=== PATIENT | female | born 1965 | race Caucasian/White ===

== ENCOUNTER → 2016-12-13 | Outpatient (REF) | LOC: ZLAB.WCH 13:37 | DX: Z01.89 Encounter for other specified special examinations (principal) ==

== ENCOUNTER → 2017-09-09 | Outpatient (CLI) | payer BC | LOC: COL.RAD 09:37 | DX: K44.9 Diaphragmatic hernia without obstruction or gangrene (principal) ==

== ENCOUNTER → 2017-09-19 | Outpatient (REF) | LOC: ZLAB.WCH 18:07 | DX: Z01.89 Encounter for other specified special examinations (principal) ==

== ENCOUNTER 2017-10-01 07:01 | Day surgery (SDC) | payer BC ==
[~2017-10-01] VITALS: Ht 170.2 cm; Wt 76.9 kg
[2017-10-01] VITALS (11 sets, daily range): BP systolic 109–149; BP diastolic 67–85; PULSE 75–91; TEMP 98–98.2
[2017-10-01] MEDS ORDERED: SINGULAIR 110 MG/TAB PO (07:30)
[2017-10-01] MEDS ORDERED: TUSS PO (07:30)
[2017-10-01] MEDS ORDERED: EFFEXOR XR75 MG/CAP (07:31)
[2017-10-01] MEDS ORDERED: VITAMIN C500 MG PO (07:31)
[2017-10-01] MEDS ORDERED: PRIL40 PO (07:32)
[2017-10-01] MEDS ORDERED: NATURAL POTASS595 MG PO (07:32)
[2017-10-01] MEDS ORDERED: SYNTHROID0.05 MG/TA PO (07:33)
[2017-10-01] MEDS ORDERED: ESTRACE0.5 MG PO (07:34)
[2017-10-01] MEDS ORDERED: IRON TABLETS325 MG PO (07:35)
[2017-10-01] MEDS ORDERED: RT ADVAIR 228 DISKUS IH (07:36)
[2017-10-02 01:07] VITALS: BP 121/76; PULSE 87; TEMP 98.2
[2017-10-02 05:11] VITALS: BP 136/80; PULSE 83; TEMP 98.5
[2017-10-02 09:26] VITALS: BP 117/56; PULSE 93; TEMP 97.7
[2017-10-02 12:06] VITALS: BP 136/78; PULSE 78; TEMP 97.4
== END 2017-10-02 16:51 | disposition home or self-care (01) ==
LOC: SDCO 07:01 → SURG 14:16 → SDCO 10-02 16:51
DX: K44.9 Diaphragmatic hernia without obstruction or gangrene (principal); K21.9 Gastro-esophageal reflux disease without esophagitis; I10 Essential (primary) hypertension; F17.210 Nicotine dependence, cigarettes, uncomplicated; F32.9 Major depressive disorder, single episode, unspecified; E03.9 Hypothyroidism, unspecified; J45.909 Unspecified asthma, uncomplicated; Z79.82 Long term (current) use of aspirin; Z86.010 Personal history of colon polyps
CPT/HCPCS: OP; A9284; C1713; J0360; J0690; J1100; J1170; J1885; J2405; J2704; J3010; J7042; J7120

== ENCOUNTER → 2018-07-07 | Outpatient (REF) ==
[~2018-07-07] MED LIST: EFFEXOR XR75 MG/CAP; ESTRACE0.5 MG PO; IRON TABLETS325 MG PO; NATURAL POTASS595 MG PO; PRIL40 PO; RT ADVAIR 228 DISKUS IH; SINGULAIR 110 MG/TAB PO; SYNTHROID0.05 MG/TA PO; TUSS PO; VITAMIN C500 MG PO
== END ==
LOC: COL.CARD 07:35
DX: Z01.818 Encounter for other preprocedural examination (principal)

== ENCOUNTER 2022-08-19 13:18 | Inpatient (IN) | payer BC ==
[~2022-08-19] VITALS: Ht 17.8 cm; Wt 61.8 kg
[2022-08-19] VITALS (9 sets, daily range): BP systolic 126–170; BP diastolic 78–113; PULSE 64–102; TEMP 97.5–98.6
[2022-08-19] MEDS ORDERED: GUAIATUSSIN (13:51)
[2022-08-19] MEDS ORDERED: [UNRECOGNIZED DRUG - OTHER] IH (13:52)
[2022-08-19] MEDS ORDERED: CLARITIN 1010 MG/TAB PO (13:52)
[2022-08-19] MEDS ORDERED: ZOFRAN 4MG T4 MG/TAB PO (14:22)
[2022-08-19] MEDS ORDERED: TYLENOL 500MG500 MG PO (14:23)
[2022-08-19] MEDS ORDERED: ROXICODONE 55 MG/TAB PO (14:23)
--- NOTE | 2022-08-19 20:51 | NUR ---
THE PATIENT ARRIVED AT 19:40 ACCOMPANIED BY THE OR NURSE. THE PATIENT WAS ALERT AND ORIENTED AND APPROPRIATE. THE PATIENT WAS ORIENTED TO THE ROOM AND BED CONTROLS. ALL QUESTIONS AND CONCERNS WERE ADDRESSED. CALL LIGHT AND PERSONAL BELONGINGS WITHIN REACH. BED IN LOW POSITION.
[2022-08-20] VITALS (10 sets, daily range): BP systolic 104–181; BP diastolic 62–93; PULSE 68–108; TEMP 97.8–99.8
--- NOTE | 2022-08-20 01:29 | NUR ---
00:35 DR. JASMEET WOLF CONTACTED REGARDING THE PTS CONTINUED HYPERTENSION LAST BP 181/93, HR 74. NEW ORDER RECEIVED. ALSO, ONE OF THE PTS LAP SITES WAS OOZING. A NEW PRESSURE DRESSING WAS APPLIED. PER DR. WOLF CONTINUE TO MONITOR THE LAP SITE AND CALL WITH ANY SIGNIFICANT CHANGES. ALSO, IT IS OKAY FOR THE PATIENT TO GET OUT OF BED AND AMBULATE AT THIS TIME. WILL MONITOR.
--- NOTE | 2022-08-20 04:23 | NUR ---
04:15 DR. WOLF WAS CONTACTED REGARDING THE PATIENTS CONTINUED BLEEDING FROM THE ONE UPPER MIDLINE LAP SITE. IN 4 HOURS A TRAY OF 4X4S HAVE BEEN SATURATED. NEW ORDERS FOR CBC, CMP AND INR IN THE AM. ALSO, CONTINUE TO MONITOR AND REINFORCE THE CURRENT DRESSING AND APPLY AN ABDOMINAL BINDER IF ONE IS AVAILABLE. WILL CONTINUE TO MONITOR.
--- NOTE | 2022-08-20 06:13 | NUR ---
05:15 ABD BINDER PLACED ON THE PTS ABD OVER THE OOZING/BLEEDING LAP SITE. WILL CONTINUE TO MONITOR.
[2022-08-20 06:39] LABS: HEMOGLOBIN 11.8 g/dl (12.5-16.0); MEAN CELL VOLUME 104 fl (80.0-100.0); MEAN CORPUSCULAR HEMOGLOBIN 36 pg (27-31); MEAN CORPUSCULAR HGB CONC 34 g/dl (33.0-37.0); MEAN PLATELET VOLUME 11.7 fl (7.4-10.4); PLATELET COUNT 124 K/mm3 (130-400); RED BLOOD COUNT 3.31 M/mm3 (4.10-5.30); REDCELL DISTRIBUTION WIDTH-CV 14.5 % (11.5-14.5)
[2022-08-20 06:43] LABS: PROTHROMBIN TIME 11.7 SECONDS (9.7-12.8)
[2022-08-20 06:46] LABS: HEMATOCRIT 34.4 % (37.0-47.0)
--- NOTE | 2022-08-20 07:00 | NUR ---
Pt. sitting up in bed. Pt. is A&OX3, assessment complete. INT to lt. ac patent. Pt. has 6 abd. lap sites 5 are CDI with bandaid. Upper abd. site has been ozzing throughout the night. Dressing checked and bleeding through. Dressings removed applied 4 4X4's and foam tape, then place abd pad over that, then applied the abd. binder. Will continue to monitor. Pt. denies further needs, call light within reach.
[2022-08-20 07:21] LABS: ALBUMIN 3.1 gm/dL (3.5-5.0); BILIRUBIN,TOTAL 2.2 mg/dL (0.2-1.2); CALCIUM 8.6 mg/dL (8.4-10.2); CREATININE, serum 0.62 mg/dL (0.57-1.11); POTASSIUM 4.7 mmol/L (3.5-4.5); TOTAL PROTEIN 6.3 gm/dL (6.2-8.1)
--- NOTE | 2022-08-20 11:07 | NUR ---
BALTAZAR met with the patient to discuss discharge plan. The patient lives in [place] with her , Beverly (ph#[phone]). She reports independence with ADLs and does not have any DME. The patient states that she sees both Dr. Kyle Maya and Dr. Attila Colvin for primary care. She receives her medications from [facility]. The patient does not have a DPOA-HC, but she was interested in obtaining a form. BALTAZAR provided. The patient plans to return home with her upon discharge. No additional needs at this time. *Discharge plan: home with *
--- NOTE | 2022-08-20 12:45 | NUR ---
Pt. sitting up in bed. Checking abd. incision. Site has satruated through the dressing again. Pt. cleaned up and new gauze, tape and abd pads placed. Abd. binder also applied. Pt. reports pain at a 6 on pain scale, gave Tylenol. Pt. denies further needs.
--- NOTE | 2022-08-21 02:22 | NUR ---
SHIFT NURSING ASSESSMENT COMPLETED. THE PATIENT DENIED NEEDS UPON ASSESSMENT. THE PATIENT WAS ASSISTED TO THE BATHROOM AT THIS TIME. CALL LIGHT AND PERSONAL BELONGINGS WITHIN REACH. BED IN LOW POSITION. WILL MONITOR.
[2022-08-21 03:33] VITALS: BP 130/75; PULSE 84; TEMP 98.2
[2022-08-21 06:43] LABS: BASO % 0.1 % (0.0-2.0); EOS % 0.5 % (0.0-4.0); GRAN # 6.4 K/mm3 (1.4-6.5); HEMOGLOBIN 10.6 g/dl (12.5-16.0); LYMPH # 1.1 K/mm3 (1.2-3.4); LYMPH % 13.7 % (20.0-51.0); MEAN CELL VOLUME 106 fl (80.0-100.0); MEAN CORPUSCULAR HEMOGLOBIN 36 pg (27-31); MEAN CORPUSCULAR HGB CONC 34 g/dl (33.0-37.0); MEAN PLATELET VOLUME 11.7 fl (7.4-10.4); MONO # 0.7 K/mm3 (0.1-0.6); MONO % 8.1 % (1.7-9.3); PLATELET COUNT 100 K/mm3 (130-400); RED BLOOD COUNT 2.96 M/mm3 (4.10-5.30); REDCELL DISTRIBUTION WIDTH-CV 14.7 % (11.5-14.5)
[2022-08-21 06:50] LABS: HEMATOCRIT 31.3 % (37.0-47.0)
[2022-08-21 06:58] LABS: ALBUMIN 2.7 gm/dL (3.5-5.0); BILIRUBIN,TOTAL 2.3 mg/dL (0.2-1.2); CALCIUM 8.3 mg/dL (8.4-10.2); CREATININE, serum 0.54 mg/dL (0.57-1.11); POTASSIUM 4.4 mmol/L (3.5-4.5); TOTAL PROTEIN 5.1 gm/dL (6.2-8.1)
[2022-08-21 07:10] VITALS: BP 144/84; PULSE 82; TEMP 99
--- NOTE | 2022-08-21 08:15 | NUR ---
Pt. sitting up in bed. Pt. is A&OX3, assessment complete. INT to lt. ac patent. Abd. lap sites x5 with bandaids, CDI. Upper abd. lap site with gauze anf foam tape CDI. Abd. binder on. Pt. reports abd. pain at a 9 on pain scale, gave pain meds per orders. Pt. NPO for MRCP. Pt. denies further needs, call light within reach.
--- NOTE | 2022-08-21 10:49 | NUR ---
Initial visit; Patient thanked Glass Designer for looking in on her and offering prayer and God's blessings. Glass Designer will keep Lili in her prayers.
[2022-08-21 16:19] VITALS: BP 134/83; PULSE 83; TEMP 98
--- NOTE | 2022-08-21 19:26 | NUR ---
Pt. given discharged paperwork. Reveiwed information with pt. Pt. voices understanding. INT discontinued from lt. ac. Pt. waiting for ride.
--- NOTE | 2022-08-21 19:57 | NUR ---
pt escorted by nurse via wc. pt left facility at approximately 1950 with spouse via personal vehicle.
== END 2022-08-21 19:50 | disposition home or self-care (01) | DRG 327 ==
LOC: SURG 13:18 → SDCO 13:18 → SURG 19:53 → SDCO 08-21 10:58 → SURG 08-21 10:59
PROVIDERS: Surgery; ADMIT Surgery
PROC: 0DV44ZZ Restriction of Esophagogastric Junction, Percutaneous Endoscopic Approach (ICD-10-PCS; 2022-08-19)
PROC: 8E0W4CZ Robotic Assisted Procedure of Trunk Region, Percutaneous Endoscopic Approach (ICD-10-PCS; 2022-08-19)
PROC: 0BUT4JZ Supplement Diaphragm with Synthetic Substitute, Percutaneous Endoscopic Approach (ICD-10-PCS; principal; 2022-08-19 15:00)
DX: K44.9 Diaphragmatic hernia without obstruction or gangrene (principal); K91.840 Postprocedural hemorrhage of a digestive system organ or structure following a digestive system procedure; K21.9 Gastro-esophageal reflux disease without esophagitis; I10 Essential (primary) hypertension; J44.9 Chronic obstructive pulmonary disease, unspecified; F32.A Depression, unspecified; F10.90 Alcohol use, unspecified, uncomplicated; K76.0 Fatty (change of) liver, not elsewhere classified; F17.210 Nicotine dependence, cigarettes, uncomplicated; R13.10 Dysphagia, unspecified; E03.9 Hypothyroidism, unspecified; Z79.890 Hormone replacement therapy; Y83.8 Other surgical procedures as the cause of abnormal reaction of the patient, or of later complication, without mention of misadventure at the time of the procedure
CPT/HCPCS: OP; C1781; J0360; J0690; J1100; J1170; J1885; J2405; J2704; J3010; J7120